=== PATIENT | male | born 1990 | race Two or more races ===

== ENCOUNTER 2017-07-06 22:08 | Emergency (ER) | payer MEDICAID, OTHER ==
[~2017-07-06] VITALS: Ht 175.3 cm; Wt 85.3 kg
[2017-07-06 23:30] VITALS: BP 117/69
== END 2017-07-07 | disposition home or self-care (01) ==
LOC: ER 22:17
DX: S93.401A Sprain of unspecified ligament of right ankle, initial encounter (principal); X50.0XXA Overexertion from strenuous movement or load, initial encounter; Y93.89 Activity, other specified; Y99.8 Other external cause status; Y92.89 Other specified places as the place of occurrence of the external cause
CPT/HCPCS: 73610